=== PATIENT | female | born 1940 ===

== ENCOUNTER → 2018-03-01 | Outpatient (CLI) | payer MEDICARE ==
[~2018-03-01] MED LIST: ACET325 PO; ASPI81CH PO; CHOL10002 PO; CIPR500 PO; METR500 PO; ONDA4ODT SL
== END ==
LOC: LAB 16:19 → LAB SHORT 16:19
DX: N39.0 Urinary tract infection, site not specified (principal)
CPT/HCPCS: 87077; 87086; 87186

== ENCOUNTER 2019-02-21 06:16 | Day surgery (SDC) | payer MEDICARE ==
[~2019-02-21] VITALS: Ht 157.5 cm; Wt 58.2 kg
[2019-02-21] MEDS ORDERED: OMEGA 3 500 SO1 EACH (06:46)
== END 2019-02-21 08:09 | disposition home or self-care (01) ==
LOC: ORSCSDS 06:16
PROVIDERS: Ophthalmology
PROC: 08RJ3JZ Replacement of Right Lens with Synthetic Substitute, Percutaneous Approach (ICD-10-PCS; principal; 2019-02-21 07:30)
DX: H25.11 Age-related nuclear cataract, right eye (principal); Z87.891 Personal history of nicotine dependence; Z79.82 Long term (current) use of aspirin
CPT/HCPCS: J2001; J2250; J3010; J3301; J7120; V2632

== ENCOUNTER 2019-03-07 06:11 | Day surgery (SDC) | payer MEDICARE ==
[~2019-03-07] VITALS: Ht 157.5 cm; Wt 57.9 kg
[~2019-03-07 06:11] MED LIST changes: +OMEGA 3 500 SO1 EACH
--- NOTE | 2019-03-07 06:53 | NUR ---
03/07/19 0653 Lisa Beyer CALL LIGHT WITHIN REACH
== END 2019-03-07 07:57 | disposition home or self-care (01) ==
LOC: ORSCSDS 06:11
PROVIDERS: Ophthalmology
PROC: 08RK3JZ Replacement of Left Lens with Synthetic Substitute, Percutaneous Approach (ICD-10-PCS; principal; 2019-03-07 07:30)
DX: H25.12 Age-related nuclear cataract, left eye (principal); Z79.82 Long term (current) use of aspirin
CPT/HCPCS: J2001; J2250; J3010; J3301; J7040; V2632

== ENCOUNTER → 2020-05-27 | Outpatient (CLI) | payer MEDICARE | END | disposition home or self-care (01) | LOC: LAB SHORT 13:48 → LAB 13:48 | DX: L29.3 Anogenital pruritus, unspecified (principal); N39.0 Urinary tract infection, site not specified; B37.3 Candidiasis of vulva and vagina | CPT/HCPCS: 87077; 87086; 87186 ==

== ENCOUNTER → 2021-03-17 | Outpatient (CLI) | payer MEDICARE | END | disposition home or self-care (01) | LOC: LAB SHORT 15:25 → LAB 15:25 | DX: N39.0 Urinary tract infection, site not specified (principal) | CPT/HCPCS: 87077; 87086; 87186 ==

== ENCOUNTER → 2022-09-08 | Outpatient (CLI) | payer MEDICARE ==
[2022-09-08 09:56] LABS: Source, Urine Clean Catch
[2022-09-08 13:27] LABS: Appearance, Urine Clear (Clear); Bilirubin, Urine Neg (Neg); Blood, Urine Neg (Neg); Color, Urine Yellow (P-Yellow); Glucose Qualitative, Urine Neg (Neg); Ketones, Urine Neg (Neg); Leukocyte Esterase, Urine Neg (Neg); Nitrite, Urine Neg (Neg); Protein, Urine Neg (Neg); Urobilinogen, Urine NORM (Normal); pH, Urine 6.5 (5.0-8.0)
== END ==
LOC: LAB SHORT 09:55 → LAB 09:55 → LAB FUT 09-07 17:15
PROVIDERS: Nurse Practitioner Family
DX: N39.0 Urinary tract infection, site not specified (principal)
CPT/HCPCS: 81003

== ENCOUNTER → 2023-03-16 | Outpatient (CLI) | payer MEDICARE ==
[2023-03-16 12:04] LABS: Source, Urine Clean Catch
[2023-03-16 18:43] LABS: Appearance, Urine Hazy (Clear); Bilirubin, Urine Neg (Neg); Blood, Urine 2+ (Neg); Color, Urine Yellow (P-Yellow); Glucose Qualitative, Urine Neg (Neg); Ketones, Urine Neg (Neg); Leukocyte Esterase, Urine 3+ (Neg); Nitrite, Urine Neg (Neg); Protein, Urine 2+ (Neg); Specific Gravity, Urine 1.015 (1.003-1.022); Urobilinogen, Urine NORM (Normal); pH, Urine 6.5 (5.0-8.0)
[2023-03-16 19:10] LABS: Bacteria Many /hpf; Hyaline Casts 0-2 /lpf (0-2); Renal Epithelial Rare /hpf (0-Rare); Squamous Epithelial Cells Few /hpf (Few); White Blood Cells, Urine 50-100 /hpf (0-5)
== END | disposition home or self-care (01) ==
LOC: LAB 11:40 → LAB SHORT 11:40
PROVIDERS: Nurse Practitioner Family
DX: N39.0 Urinary tract infection, site not specified (principal)
CPT/HCPCS: 81001; 87077; 87086; 87186

== ENCOUNTER → 2023-06-14 | Outpatient (CLI) | payer MEDICARE | END | disposition home or self-care (01) | LOC: LAB 17:45 → LAB SHORT 17:45 | DX: N39.0 Urinary tract infection, site not specified (principal) | CPT/HCPCS: 87077; 87086; 87186 ==

== ENCOUNTER 2023-08-19 11:30 | Emergency (ER) | payer MEDICARE ==
[~2023-08-19] VITALS: Ht 157.5 cm; Wt 54.9 kg
[2023-08-19] MEDS ORDERED: LOSA50 PO (11:47)
[2023-08-19 11:52] LABS: Hematocrit 42.4 % (33.0-51.0); Hemoglobin 14.1 g/dL (11.5-16.0); Mean Corpuscular HGB 30.3 pg (26.0-34.0); Mean Corpuscular HGB Conc 33.3 g/dL (31.5-36.5); Mean Corpuscular Volume 91 fL (80-100); Mean Platelet Volume 9.6 fL (9.1-12.4); Platelet Count 468 K/mm3 (150-400); RDW Coefficient Variation 14.1 % (11.7-14.2); RDW Standard Deviation 47.1 fL (35.1-46.3); Red Blood Cell Count 4.66 M/mm3 (3.80-5.20); White Blood Cell Count 12.14 K/mm3 (4.00-11.30)
[2023-08-19 12:11] LABS: Albumin, Blood 4.2 g/dL (3.4-5.0); Bilirubin, Total 0.6 mg/dL (0.1-1.0); Bun/Creatinine Ratio 24.3 (12.0-20.0); Calcium, Blood 9.3 mg/dL (8.5-10.1); Creatinine, Blood 0.78 mg/dL (0.40-1.00); Potassium, Blood 4.5 mmol/L (3.5-5.5); Total Protein, Blood 8.2 g/dL (6.4-8.2)
[2023-08-19 12:16] LABS: BAND PERCENT MAN 11 % (0-8); BASOPHILS PERCENT MAN 0 % (0-2); EOSINOPHILS PERCENT MAN 0 % (0-6); LYMPHOCYTES ABSOLUTE MAN 0.12 K/mm3 (0.84-5.20); LYMPHOCYTES PERCENT MAN 1 % (21-46); MONOCYTES ABSOLUTE MAN 0.12 K/mm3 (0.16-1.47); MONOCYTES PERCENT MAN 1 % (4-13); NEUTROPHILS ABSOLUTE MAN 11.89 K/mm3 (1.96-9.15); SEG NEUTROPHILS PERCENT MAN 87 % (41-73); TOTAL CELLS COUNTED 100
[2023-08-19] MEDS ORDERED: ONDA4ODT MM (13:50)
[2023-08-19 14:00] VITALS: BP 111/58
== END 2023-08-19 14:13 | disposition home or self-care (01) ==
LOC: ER 11:30
PROVIDERS: Emergency Medicine
DX: R11.2 Nausea with vomiting, unspecified (principal); R19.7 Diarrhea, unspecified; Z79.82 Long term (current) use of aspirin; Z79.899 Other long term (current) drug therapy; Z87.891 Personal history of nicotine dependence
CPT/HCPCS: 74177; 80053; 83690; 85025; 93005; 93010; 96374; 99284-25; J2405; Q9967

== ENCOUNTER → 2023-09-13 | Outpatient (CLI) | payer MEDICARE ==
[~2023-09-13] MED LIST changes: +LOSA50 PO; +ONDA4ODT MM
[2023-09-13 13:01] LABS: Source, Urine Clean Catch
[2023-09-13 18:44] LABS: Appearance, Urine Hazy (Clear); Bilirubin, Urine Neg (Neg); Blood, Urine 1+ (Neg); Color, Urine Yellow (P-Yellow); Glucose Qualitative, Urine Neg (Neg); Ketones, Urine Neg (Neg); Leukocyte Esterase, Urine 3+ (Neg); Nitrite, Urine Pos (Neg); Protein, Urine 2+ (Neg); Urobilinogen, Urine NORM (Normal); pH, Urine 6.5 (5.0-8.0)
[2023-09-13 18:58] LABS: White Blood Cells, Urine 50-100 /hpf (0-5)
[2023-09-13 18:59] LABS: Bacteria Many /hpf; Renal Epithelial Rare /hpf (0-Rare); Squamous Epithelial Cells Few /hpf (Few); Transitional Epithelial Cells Rare /hpf (0-Rare)
== END | disposition home or self-care (01) ==
LOC: LAB 13:00 → LAB SHORT 13:00
PROVIDERS: Nurse Practitioner Family
DX: N39.0 Urinary tract infection, site not specified (principal)
CPT/HCPCS: 81001; 87077; 87086; 87186

== ENCOUNTER → 2024-05-04 | Outpatient (CLI) | payer MEDICARE | END | disposition home or self-care (01) | LOC: LAB 10:43 → LAB SHORT 10:43 | DX: R30.0 Dysuria (principal) | CPT/HCPCS: 87077; 87086; 87186 ==

== ENCOUNTER 2024-07-05 09:48 | Observation (INO) | payer MEDICARE ==
[~2024-07-05] VITALS: Ht 157.5 cm; Wt 56.6 kg
[2024-07-05] VITALS (9 sets, daily range): BP systolic 99–155; BP diastolic 47–83
[2024-07-05] MEDS ORDERED: FentaNYL Citrate 50 MCG/ML 2 ML Injection ONE ×2 (11:27→12:16)
[2024-07-05] MEDS ORDERED: Heparin Sodium 1000 Units/ML 10ML MDV ONE ×3 (11:27→12:19)
[2024-07-05] MEDS ORDERED: NS 2,000 ML IV ONE ×2 (11:27→11:31)
[2024-07-05] MEDS ORDERED: Midazolam HCl 1MG / ML 2ML Vial ONE (11:27)
[2024-07-05] MEDS ORDERED: NS 100 ML IV ONE (11:29)
[2024-07-05] MEDS ORDERED: CeFAZolin Sodium 1000 mg Vial ONE (11:29)
[2024-07-05] MEDS ORDERED: Lidocaine 2%-Epineph 1:100000 20 ML MDV ONE (11:31)
[2024-07-05] MEDS ORDERED: NS 500 ML IV ONE (11:31)
[2024-07-05 11:34] LABS: BASOPHILS ABSOLUTE AUTO 0.11 K/mm3 (0.00-0.23); BASOPHILS PERCENT AUTO 1 % (0-2); EOSINOPHILS ABSOLUTE AUTO 0.16 K/mm3 (0.00-0.68); EOSINOPHILS PERCENT AUTO 2 % (0-6); Hematocrit 35.6 % (33.0-51.0); Hemoglobin 11.4 g/dL (11.5-16.0); IMMATURE GRAN ABSOLUTE AUTO 0.06 K/mm3 (0.00-0.10); IMMATURE GRAN PERCENT AUTO 1 % (0-1); LYMPHOCYTES ABSOLUTE AUTO 1.72 K/mm3 (0.84-5.20); LYMPHOCYTES PERCENT AUTO 17 % (21-46); MONOCYTES PERCENT AUTO 11 % (4-13); Mean Corpuscular HGB 28.2 pg (26.0-34.0); Mean Corpuscular Volume 88 fL (80-100); Mean Platelet Volume 9.3 fL (9.1-12.4); NEUTROPHILS ABSOLUTE AUTO 7.13 K/mm3 (1.96-9.15); NEUTROPHILS PERCENT AUTO 69 % (41-73); Platelet Count 572 K/mm3 (150-400); RDW Standard Deviation 47.8 fL (35.1-46.3); Red Blood Cell Count 4.04 M/mm3 (3.80-5.20); White Blood Cell Count 10.28 K/mm3 (4.00-11.30)
[2024-07-05 11:55] LABS: International Normalized Ratio 1.01; Prothrombin Time Results 10.8 Sec (9.7-11.5)
[2024-07-05 12:00] LABS: Bun/Creatinine Ratio 12.7 (12.0-20.0); Calcium, Blood 9.3 mg/dL (8.5-10.1); Creatinine, Blood 0.63 mg/dL (0.40-1.00)
[2024-07-05] MEDS ORDERED: Phenylephrine HCl 100 MCG/ML-NS 10MLSYR (1MG/10ML) ONE (12:19)
--- NOTE | 2024-07-05 12:55 | NUR ---
PT TO RECOVERY RM IN [facility] UNTIL BED ASSIGNMENT IS AVAIL. PT ARRIVES WITH R FEMORAL SITE AFTER MICRA (LEADLESS PACEMAKER) IMPLANT. BANDAGE AT SITE. NO BLEEDING NOTED. VSS. PT C/O RLE PAIN. DR MEJIA MADE AWARE. NO ORDERS IN PLACE. CALL LIGHT WITHIN REACH. FAMILY AT BEDSIDE.
[2024-07-05] MEDS ORDERED: Acetaminophen 325 MG TABLET PO PRN (13:00)
[2024-07-05] MEDS ORDERED: HYDROcodone 10-APAP 325 TAB PO PRN (13:00)
[2024-07-05] MEDS ORDERED: FLU VACC TS2024-25(6MOS UP)/PF 45 MCG/0.5 ML SYRINGE IM SCH (13:05)
[2024-07-05] MEDS ORDERED: Acetaminophen 325 MG TABLET ONE (13:06)
[2024-07-05] MEDS ORDERED: Ondansetron HCl 2 MG / ML 2ML Vial IV PRN (13:10)
--- NOTE | 2024-07-05 13:25 | NUR ---
PT MEDICATED PER ORDERS, TOLERATES WELL. DR MEJIA IN ROOM DISCUSSING PLAN OF CARE. R FEMORAL SITE REMAINS C/D/I, NO BLEEDING NOTED.
[2024-07-05] MEDS ORDERED: Morphine Sulfate 4 MG/1 ML Injection IV PRN (13:35)
[2024-07-05] MEDS ORDERED: Morphine Sulfate 4 MG/1 ML Injection ONE (13:49)
--- NOTE | 2024-07-05 13:49 | NUR ---
REPORT GIVEN TO YESSENIA CORRIGAN RN FOR CONTINUATION OF CARE.
[2024-07-05] MEDS ORDERED: Ondansetron HCl 2 MG / ML 2ML Vial ONE (13:53)
--- NOTE | 2024-07-05 14:27 | NUR ---
pt transferred to PCU 17 WITH ALL BELONGINGS. Pt S/O at bedside. Pt reports pain much improved after bilingual medical assistant. Pt less restless in bed, VSS. bedside report, site assessed.
[2024-07-05] MEDS ORDERED: Morphine Sulfate 4 MG/1 ML Injection IV ONE (16:20)
--- NOTE | 2024-07-05 18:27 | NUR ---
SHIFT SUMMARY ASSUMED CARE AT 1500 FOR EXTENDED RECOVERY AFTER PACEMAKER PLACEMENT. NO BLEEDING, REDNESS, OR SWELLING NOTED AT FEMORAL SITE. BILATERAL PEDAL PULSES PRESENT AND STRONG. VITALS REMAINED STABLE, BEGAN RAISING HEAD OF BED 15 DEGREES EVERY 30 MINUTES AT 1645. PT A/0, FOLLOWING COMMANDS AND COMMUNICATING NEEDS APPROPRIATELY. 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 CALLED DR MEJIA FOR BREAKTHROUGH PAIN MEDICATION AND PT WAS TREATED PER DEC AND REPORTED HER PAIN DOWN TO A 7. PT HAS PUREWICK IN PLACE, DRAINING TO SUCTION. WILL CONTINUE TO MONITOR AND GIVE REPORT TO ONCOMING [place]
[2024-07-05] MEDS ORDERED: CeFAZolin Sodium 1,000 MG in NS 50 ML IV SCH (20:00)
[2024-07-06] VITALS: BP 103/62
[2024-07-06 04:00] VITALS: BP 109/70
[2024-07-06 04:34] LABS: Hematocrit 33.3 % (33.0-51.0); Hemoglobin 10.7 g/dL (11.5-16.0); Mean Corpuscular HGB 28.5 pg (26.0-34.0); Mean Corpuscular HGB Conc 32.1 g/dL (31.5-36.5); Mean Corpuscular Volume 89 fL (80-100); Mean Platelet Volume 9.3 fL (9.1-12.4); Platelet Count 489 K/mm3 (150-400); RDW Coefficient Variation 15.3 % (11.7-14.2); RDW Standard Deviation 48.5 fL (35.1-46.3); Red Blood Cell Count 3.75 M/mm3 (3.80-5.20); White Blood Cell Count 9.94 K/mm3 (4.00-11.30)
[2024-07-06 04:54] LABS: Bun/Creatinine Ratio 15.1 (12.0-20.0); Creatinine, Blood 0.66 mg/dL (0.40-1.00); Potassium, Blood 4.2 mmol/L (3.5-5.5)
--- NOTE | 2024-07-06 06:08 | NUR ---
SHIFT SUMMARY ASSUMED CARE OF PT AT 1900. PT A&O4, PLEASENT AND COOPERATIVE TO CARE. PT PRESENTED WITH A RIGHT FEMORAL DRESSING DRY, CLEAN AND INTACT WITH STONG RADIAL AND PEDAL PULSES. PT DENIES ANY PAIN AND SOB. AT SHIFT CHANGE; OFF GOING RN LESLEY HOB 15 DEGREES AND PT TOLERATED WELL. 1 HR LATER, I LESLEY ANOTHER 15 DEGREES TO 45 AND PT TOLERATED WELL. AM EKG DONE SHOWING PT IN SR WITH 1ST DEGREE AV BLOCK. PT BED IN LOWEST POSITION AND CALL LIGHT WITHIN REACH.
[2024-07-06 07:12] VITALS: BP 136/62
[2024-07-06] MEDS ORDERED: Aspirin 81 MG TabEC PO SCH (09:00)
[2024-07-06] MEDS ORDERED: Losartan Potassium 50 MG Tab PO SCH (09:00)
[2024-07-06] MEDS ORDERED: LOSA25 PO (09:49)
[2024-07-06 10:07] VITALS: BP 115/54
--- NOTE | 2024-07-06 10:33 | NUR ---
[place] of care/discharge summary Pt alert and orietned. calm and cooperative with care. Skin intact, no breakdown noted. Right femoral site, dressing intact and clean, no bleeding hematoma, or bruising. Pacemaker placed, HR in the 90s, SBP in the 110's-130's, she denies CP/pressure, numb/tingling. O2 in the high 90's on RA, denies any SOB. +b/s, no tenderness on palpation. IV s/l. Pt has no questions or concerns at this time. Pts VSS. No acute changes through the morning. Pt completed XR this morning. Losartan dose decreased pt educated on this. Pt removed from tele. IV removed, pressure applied, dressed with coban and gauze. Pt tolerated well without complications. Discharge education provided to pt. Pt had no further questions or concerns. Pt left via wheelchair with PCT at 1016.
[2024-07-07] MEDS ORDERED: Losartan Potassium 25 MG Tab PO SCH (09:00)
== END 2024-07-06 10:24 | disposition home or self-care (01) ==
LOC: MHTC 09:48 → PCU 12:47 → SURS 12:48 → PCU 12:48 → MHTC 12:48 → PCU 14:37
PROVIDERS: ADMIT Internal Medicine Cardiovascular Disease
DX: I44.39 Other atrioventricular block (principal); K21.9 Gastro-esophageal reflux disease without esophagitis; E78.5 Hyperlipidemia, unspecified; I10 Essential (primary) hypertension; Z88.2 Allergy status to sulfonamides; Z88.1 Allergy status to other antibiotic agents
CPT/HCPCS: 33274; 36415; 71046; 76937; 80048; 85025; 85027; 85610; 93005; 93010; 94760; 99152; 99153; A9270; C1769; C1786; C1894; J0690; J1644; J2250; J2270; J2371; J2405; J3010; J7030; J7040; Q9967

== ENCOUNTER → 2024-12-19 | Outpatient (CLI) | payer MEDICARE ==
[~2024-12-19] MED LIST changes: +LOSA25 PO
[2024-12-19 11:13] LABS: Source, Urine Clean Catch
[2024-12-19 19:06] LABS: Appearance, Urine Clear (Clear); Bilirubin, Urine Neg (Neg); Blood, Urine Neg (Neg); Glucose Qualitative, Urine Neg (Neg); Ketones, Urine Neg (Neg); Leukocyte Esterase, Urine 3+ (Neg); Nitrite, Urine Neg (Neg); Protein, Urine Neg (Neg); Specific Gravity, Urine 1.005 (1.003-1.022); Urobilinogen, Urine NORM (Normal); pH, Urine 6.5 (5.0-8.0)
[2024-12-19 19:16] LABS: Color, Urine Pale Yellow (P-Yellow)
[2024-12-19 19:17] LABS: Bacteria Many /hpf; Red Blood Cells, Urine Not Seen /hpf (0-2); Squamous Epithelial Cells Few /hpf (Few); White Blood Cells, Urine 25-50 /hpf (0-5)
== END | disposition home or self-care (01) ==
LOC: LAB 11:08 → LAB SHORT 11:08
PROVIDERS: Nurse Practitioner Family
DX: R30.0 Dysuria (principal)
CPT/HCPCS: 81001; 87077; 87086; 87186

== ENCOUNTER → 2025-01-03 | Outpatient (CLI) | payer MEDICARE ==
[2025-01-03 08:32] LABS: Source, Urine Clean Catch
[2025-01-03 13:11] LABS: Appearance, Urine Clear (Clear); Bilirubin, Urine Neg (Neg); Blood, Urine Neg (Neg); Glucose Qualitative, Urine Neg (Neg); Ketones, Urine Neg (Neg); Leukocyte Esterase, Urine Neg (Neg); Nitrite, Urine Neg (Neg); Protein, Urine Neg (Neg); Urobilinogen, Urine NORM (Normal)
[2025-01-03 13:24] LABS: Color, Urine Pale Yellow (P-Yellow)
== END | disposition home or self-care (01) ==
LOC: LAB 08:13 → LAB SHORT 08:13
PROVIDERS: Nurse Practitioner Family
DX: N39.0 Urinary tract infection, site not specified (principal)
CPT/HCPCS: 81003

== ENCOUNTER → 2025-01-29 | Outpatient (CLI) | payer MEDICARE ==
[2025-01-29 13:40] LABS: Source, Urine Clean Catch
[2025-01-29 19:44] LABS: Appearance, Urine Hazy (Clear); Bilirubin, Urine Neg (Neg); Blood, Urine 1+ (Neg); Glucose Qualitative, Urine Neg (Neg); Ketones, Urine Neg (Neg); Leukocyte Esterase, Urine 3+ (Neg); Nitrite, Urine Neg (Neg); Protein, Urine 1+ (Neg); Specific Gravity, Urine 1.005 (1.003-1.022); Urobilinogen, Urine NORM (Normal)
[2025-01-29 20:13] LABS: Color, Urine Pale Yellow (P-Yellow); Red Blood Cells, Urine 0-2 /hpf (0-2); White Blood Cells, Urine TNTC /hpf (0-5)
[2025-01-29 20:14] LABS: Bacteria Many /hpf; Renal Epithelial Rare /hpf (0-Rare); Squamous Epithelial Cells Rare /hpf (Few); Transitional Epithelial Cells Rare /hpf (0-Rare)
== END | disposition home or self-care (01) ==
LOC: LAB SHORT 13:38 → LAB 13:38
PROVIDERS: Nurse Practitioner Family
DX: R30.0 Dysuria (principal)
CPT/HCPCS: 81001; 87077; 87086; 87186

== ENCOUNTER → 2025-02-25 | Outpatient (CLI) | payer MEDICARE ==
[2025-02-25 10:09] LABS: Source, Urine Clean Catch
[2025-02-25 12:40] LABS: Appearance, Urine Clear (Clear); Bilirubin, Urine Neg (Neg); Blood, Urine Neg (Neg); Glucose Qualitative, Urine Neg (Neg); Ketones, Urine Neg (Neg); Leukocyte Esterase, Urine 3+ (Neg); Nitrite, Urine Pos (Neg); Protein, Urine 1+ (Neg); Urobilinogen, Urine NORM (Normal)
[2025-02-25 12:53] LABS: Color, Urine Pale Yellow (P-Yellow)
[2025-02-25 12:54] LABS: Bacteria Many /hpf; Red Blood Cells, Urine 0-2 /hpf (0-2); Squamous Epithelial Cells Rare /hpf (Few); Transitional Epithelial Cells Rare /hpf (0-Rare); White Blood Cells, Urine 25-50 /hpf (0-5)
== END | disposition home or self-care (01) ==
LOC: LAB 10:04 → LAB SHORT 10:04
PROVIDERS: Nurse Practitioner Family
DX: N39.0 Urinary tract infection, site not specified (principal)
CPT/HCPCS: 81001; 87077; 87086; 87186

== ENCOUNTER → 2025-04-23 | Outpatient (CLI) | payer MEDICARE ==
[2025-04-23 12:09] LABS: Source, Urine Clean Catch
[2025-04-23 19:00] LABS: Bilirubin, Urine Neg (Neg); Glucose Qualitative, Urine Neg (Neg); Ketones, Urine Neg (Neg); Leukocyte Esterase, Urine 3+ (Neg); Protein, Urine 2+ (Neg); Specific Gravity, Urine 1.005 (1.003-1.022); Urobilinogen, Urine NORM (Normal)
[2025-04-23 19:11] LABS: Color, Urine Pale Yellow (P-Yellow)
[2025-04-23 19:13] LABS: White Blood Cells, Urine TNTC /hpf (0-5)
== END ==
LOC: LAB 09:54 → LAB SHORT 09:54 → LAB FUT 04-22 13:25
PROVIDERS: Physician Assistant
DX: N39.0 Urinary tract infection, site not specified (principal)
CPT/HCPCS: 81001; 87077; 87086; 87186

== ENCOUNTER → 2025-07-03 | Outpatient (CLI) | payer MEDICARE | LOC: LAB SHORT 16:40 → LAB 16:40 | DX: N39.0 Urinary tract infection, site not specified (principal) | CPT/HCPCS: 87077; 87086; 87186 ==